=== PATIENT | male | born 1970 | race Caucasian/White ===

== ENCOUNTER 2017-02-25 19:18 | Emergency (ER) | payer OTHER ==
[2017-02-25 19:25] VITALS: BP 138/87
--- NOTE | 2017-02-25 19:42 | EDM.PDOC ---
ED HPI GENERAL MEDICAL PROBLEM - General Chief Complaint: Upper Extremity Injury/Pain Stated Complaint: HAND INJURY, [id number] Time Seen by Provider: 02/25/17 19:41 Source of Information: Reports: Patient History Limitations: Reports: No Limitations - History of Present Illness INITIAL COMMENTS - FREE TEXT/NARRATIVE: laceration to base of left thumb, states hapened around 3 pm today. Was using 2x4 to pry and board broke with jagged edge of board stabbing him in hand Onset: Today Location: Reports: Upper Extremity, Left - Related Data Allergies Allergy/AdvReac Type Severity Reaction Status Date / Time No Known Allergies Allergy Verified 02/25/17 19:24 Home Meds: Home Meds Warfarin [Coumadin] 5 mg PO DAILY 02/25/17 [History] amLODIPine [Norvasc] 5 mg PO DAILY 02/25/17 [History] Past Medical History Cardiovascular History: Reports: Blood Clots/VTE/DVT, Hypertension Social & Family History - Tobacco Use Smoking Status *Q: Never Smoker Second Hand Smoke Exposure: No - Recreational Drug Use Recreational Drug Use: No Review of Systems - Review of Systems Review Of Systems: ROS reveals no pertinent complaints other than HPI. ED EXAM, GENERAL - Physical Exam Exam: See Below Exam Limited By: No Limitations General Appearance: Alert, No Apparent Distress Respiratory/Chest: No Respiratory Distress Cardiovascular: Normal Peripheral Pulses, Regular Rate, Rhythm Extremities: Other (laceration LUE) Neurological: Alert, Oriented, Normal Cognition Psychiatric: Normal Affect, Normal Mood Skin Exam: Warm, Dry, Wound/Incision (crescent laceration to thenar pad left hand) ED TRAUMA EXTREMITY PROCEDURES - Laceration/Wound Repair Left Hand Lac/wound length in cm: 3 (crescent) Appearance: Clean Distal NVT: Neuro & Vascular Intact, No Tendon Injury Anesthetic Type: Local Local Anesthesia - Lidocaine (Xylocaine): 1% Plain Local Anesthetic Volume: 3cc Skin Prep: Chlorhexidine (Hibiciens), Isopropyl Alcohol (Alcohol) Exploration/Debridement/Repair: Wound Explored, in a Bloodless Field, Explored to Base, Minimal Debridement Closed with: Sutures Suture Size: 4-0 # of Sutures: 5 Suture Type: Nylon, Interrupted Suture Size: 4-0 # of Sutures: 5 Sterile Dressing Applied: Nurse Tetanus Status Addressed: Yes (Current at this year, will recheck date in am with clinic.) Complications: No Course - Vital Signs Last Recorded V/S: Last Vital Signs Temp 99 F 02/25/17 19:22 Pulse 71 02/25/17 19:22 Resp 18 02/25/17 19:22 BP 138/87 02/25/17 19:22 Pulse Ox 99 02/25/17 19:22 - Orders/Labs/Meds Meds: Medications Discontinued Medications Generic Name Dose Route Start Last Admin Trade Name [place] PRN Reason Stop Dose Admin Bacitracin 1 dose 02/25/17 19:44 02/25/17 19:56 Bacitracin Oint 1 Gm TOP 02/25/17 19:45 1 dose ONETIME ONE Administration Lidocaine HCl 30 ml 02/25/17 19:48 02/25/17 19:56 Xylocaine-Mpf 1% INJECT 02/25/17 19:49 30 ml ONETIME ONE Administration Departure - Departure Time of Disposition: 20:16 Disposition: Home, Self-Care 01 Condition: good Clinical Impression: Laceration - Discharge Information Instructions: Laceration Care, Adult Referrals: PCP,Not In Area [Primary Care Provider] - Forms: ED Department Discharge Additional Instructions: tylenol or ibuprofen for dicomfort rest extremity 24 hours dressing change and wash with soap and water at least twice daily sutures out 10 days follow up if redness drainage or swelling
[2017-02-25] MEDS ORDERED: Bacitracin Oint 1 GM U/D Packet TOP ONE (19:44)
[2017-02-25] MEDS ORDERED: Lidocaine 1% 30 ML SDV INJECT ONE (19:48)
== END 2017-02-25 20:21 | disposition home or self-care (01) ==
LOC: DL.ED 19:18
DX: S61.012A Laceration without foreign body of left thumb without damage to nail, initial encounter (principal); I10 Essential (primary) hypertension; Z86.718 Personal history of other venous thrombosis and embolism; Z79.01 Long term (current) use of anticoagulants; Z79.899 Other long term (current) drug therapy; W45.8XXA Other foreign body or object entering through skin, initial encounter
CPT/HCPCS: 12002; 99282

== ENCOUNTER 2018-12-24 12:26 | Emergency (ER) | payer OTHER ==
--- NOTE | 2018-12-24 13:06 | EDM.PDOC ---
ED HPI GENERAL MEDICAL PROBLEM - General Chief Complaint: Upper Extremity Injury/Pain Stated Complaint: CAUGHT FINGERS IN BETWEEN MANHOLE COVER [id number] Time Seen by Provider: 12/24/18 13:03 Source of Information: Reports: Patient, RN, RN Notes Reviewed History Limitations: Reports: No Limitations - History of Present Illness INITIAL COMMENTS - FREE TEXT/NARRATIVE: Patient presents to ER with complaint of pain to right hand/fingers. Around 10: 30-10:45 he dropped a manhole cover on his right hand. The cover was about 100 - 125 pounds. He dropped about 5-6 inches on the hand. It is the index, middle and right finger. The nail beds are blue/black. Onset: Today, Sudden Duration: Constant Location: Reports: Upper Extremity, Right Quality: Reports: Ache Severity: Moderate Improves with: Reports: None Worsens with: Reports: None Associated Symptoms: Reports: No Other Symptoms - Related Data Allergies Allergy/AdvReac Type Severity Reaction Status Date / Time No Known Allergies Allergy Verified 12/24/18 13:54 Home Meds: Home Meds Warfarin [Coumadin] 5 mg PO DAILY 02/25/17 [History] amLODIPine [Norvasc] 5 mg PO DAILY 02/25/17 [History] Past Medical History Cardiovascular History: Reports: Blood Clots/VTE/DVT, Hypertension Review of Systems - Review of Systems Review Of Systems: ROS reveals no pertinent complaints other than HPI. ED EXAM, GENERAL - Physical Exam Exam: See Below Exam Limited By: No Limitations General Appearance: Alert, WD/WN, No Apparent Distress Eye Exam: Bilateral Eye: EOMI, Normal Inspection, PERRL Ears: Normal External Exam, Normal Canal, Hearing Grossly Normal, Normal TMs Nose: Normal Inspection, Normal Mucosa, No Blood Throat/Mouth: Normal Inspection, Normal Lips, Normal Teeth, Normal Gums, Normal Oropharynx, Normal Voice, No Airway Compromise Head: Atraumatic, Normocephalic Neck: Normal Inspection, Supple, Non-Tender, Full Range of Motion Respiratory/Chest: No Respiratory Distress, Lungs Clear, Normal Breath Sounds, No Accessory Muscle Use, Chest Non-Tender Cardiovascular: Normal Peripheral Pulses, Regular Rate, Rhythm, No Edema, No Gallop, No JVD, No Murmur, No Rub GI/Abdominal: Normal Bowel Sounds, Soft, Non-Tender, No Organomegaly, No Distention, No Abnormal Bruit, No Mass (Male) Exam: Deferred Rectal (Males) Exam: Deferred Back Exam: Normal Inspection, Full Range of Motion, NT Extremities: Other (swelling right middle 3 fingers. ) Neurological: Alert, Oriented, CN II-XII Intact, Normal Cognition, Normal Gait, Normal Reflexes, No Motor/Sensory Deficits Psychiatric: Normal Affect, Normal Mood Skin Exam: Other (Blue/black nailbeds of index, middle and right fingers right hand. ) Lymphatic: No Adenopathy Course - Vital Signs Last Recorded V/S: Last Vital Signs Temp 98 F 12/24/18 12:26 Pulse 70 12/24/18 12:26 Resp 16 12/24/18 12:26 BP 132/43 L 12/24/18 12:26 Pulse Ox 98 12/24/18 12:26 - Radiology Interpretation Free Text/Narrative:: Xray right hand: FINDINGS: Orbits: No acute intraorbital abnormality. Globes are unremarkable. Sinuses: Normal. No air-fluid levels. Bones/joints: No acute fracture. Soft tissues: There is a hematoma in the frontal scalp. IMPRESSION: No fractures or dislocations. See rad report. Departure - Departure Time of Disposition: 14:17 Disposition: Home, Self-Care 01 Condition: Fair Clinical Impression: Injury of right hand Qualifiers: Encounter type: initial encounter Qualified Code(s): S69.91XA - Unspecified injury of right wrist, hand and finger(s), initial encounter - Discharge Information *PRESCRIPTION DRUG MONITORING PROGRAM REVIEWED*: No *COPY OF PRESCRIPTION DRUG MONITORING REPORT IN PATIENT RERE: No Instructions: Crush Injury of the Hand, [id number] Forms: ED Department Discharge Additional Instructions: Elevate right hand Ice area as tolerated May use Tylenol and/or ibuprofen as directed for pain Follow up with your primary care facility
[2018-12-24 13:54] VITALS: BP 132/43
== END 2018-12-24 14:54 | disposition home or self-care (01) ==
LOC: DL.ED 12:26
DX: S00.03XA Contusion of scalp, initial encounter (principal); S69.91XA Unspecified injury of right wrist, hand and finger(s), initial encounter; W20.8XXA Other cause of strike by thrown, projected or falling object, initial encounter
CPT/HCPCS: 73130-RT; 99282; 99283-25

== ENCOUNTER 2021-02-06 18:01 | Emergency (ER) | payer OTHER ==
[2021-02-06 18:33] VITALS: BP 126/93; PULSE 77
[2021-02-06 19:02] LABS: CHLORIDE,CL 104 mmol/L (98-107); SODIUM,NA 140 mmol/L (136-145)
--- NOTE | 2021-02-06 19:53 | EDM.PDOC ---
ED HPI GENERAL MEDICAL PROBLEM - General Chief Complaint: Lower Extremity Injury/Pain Stated Complaint: POSSIBLE BLOOD CLOT Time Seen by Provider: 02/06/21 19:10 Source of Information: Reports: Patient History Limitations: Reports: No Limitations - History of Present Illness INITIAL COMMENTS - FREE TEXT/NARRATIVE: ED with c/o right lower leg discomfort, some swelling yesterday, no redness. Hx blood clots 12 years ago . Has been on Coumadin since. Also notes right big toe has been tender recently and has been changing normal way he walks. No Injury, No SOB, No chest pain. No change in sensation. - Related Data Allergies Allergy/AdvReac Type Severity Reaction Status Date / Time No Known Allergies Allergy Verified 12/24/18 13:54 Home Meds: Home Meds Warfarin [Coumadin] 5 mg PO DAILY 02/25/17 [History] amLODIPine [Norvasc] 5 mg PO DAILY 02/25/17 [History] Past Medical History Cardiovascular History: Reports: Blood Clots/VTE/DVT, Hypertension Social & Family History - Family History Family Medical History: No Pertinent Family History - Tobacco Use Tobacco Use Status *Q: Never Tobacco User - Caffeine Use Caffeine Use: Reports: None - Recreational Drug Use Recreational Drug Use: No Review of Systems - Review of Systems Review Of Systems: Comprehensive ROS is negative, except as noted in HPI. ED EXAM, GENERAL - Physical Exam Exam: See Below Exam Limited By: No Limitations General Appearance: Alert, No Apparent Distress Ears: Normal External Exam, Hearing Grossly Normal Nose: Normal Inspection Throat/Mouth: Normal Inspection Head: Atraumatic, Normocephalic Neck: Normal Inspection Respiratory/Chest: No Respiratory Distress, Lungs Clear, Normal Breath Sounds Cardiovascular: Regular Rate, Rhythm, No Edema Extremities: Normal Inspection, Normal Range of Motion, Non-Tender. No: Leg Pain, Increased Warmth, Mottled, Pallor, Redness Neurological: Alert, Oriented, Normal Cognition, Normal Gait Psychiatric: Normal Affect Skin Exam: Warm, Dry, Intact Course - Vital Signs Last Recorded V/S: Last Vital Signs Temp 98.2 F 02/06/21 18:28 Pulse 77 02/06/21 18:28 Resp 18 02/06/21 18:28 BP 126/93 H 02/06/21 18:28 Pulse Ox 99 02/06/21 18:28 - Orders/Labs/Meds Labs: Laboratory Tests 02/06/21 02/06/21 02/06/21 Range/Units 18:35 18:35 18:35 WBC 5.5 (5.0-10.0) 10^3/uL RBC 4.71 (4.6-6.2) 10^6/uL Hgb 14.2 (14.0-18.0) g/dL Hct 41.5 (40.0-54.0) % MCV 88.1 (80-100) fL MCH 30.1 (27.0-34.0) pg MCHC 34.2 (33.0-35.0) g/dL Plt Count 227 (150-450) 10^3/uL Neut % (Auto) 48.0 (42.2-75.2) % Lymph % (Auto) 32.0 (20.5-50.1) % [place] % (Auto) 12.4 H (2-8) % Eos % (Auto) 6.9 H (1.0-3.0) % Baso % (Auto) 0.7 (0.0-1.0) % PT 20.8 H (9.0-12.0) SEC INR 2.1 H (0.9-1.2) D-Dimer, Quantitative < 100 (0-400) ng/mL Sodium 140 (136-145) mmol/L Potassium 4.0 (3.5-5.1) mmol/L Chloride 104 (98-107) mmol/L Carbon Dioxide 25 (21-32) mmol/L Anion Gap 15.0 H (7-13) mEq/L BUN 13 (7-18) mg/dL Creatinine 1.03 (0.70-1.30) mg/dL Est Cr Clr Drug Dosing 86.62 mL/min Estimated GFR (MDRD) > 60 BUN/Creatinine Ratio 12.6 (No establ ref range) Glucose 87 (70-99) mg/dL Calcium 8.6 (8.5-10.1) mg/dL Total Bilirubin 0.5 (0.2-1.0) mg/dL AST 26 (15-37) U/L ALT 47 (16-63) U/L Alkaline Phosphatase 61 (46-116) U/L Total Protein 7.7 (6.4-8.2) g/dL Albumin 4.1 (3.4-5.0) g/dL Globulin 3.6 Albumin/Globulin Ratio 1.1 - Re-Assessments/Exams Free Text/Narrative Re-Assessment/Exam: 02/07/21 02:46 Results of findings discussed with patient. Departure - Departure Time of Disposition: 19:51 Disposition: Home, Self-Care 01 Condition: Good Clinical Impression: Pain in right lower leg - Discharge Information *PRESCRIPTION DRUG MONITORING PROGRAM REVIEWED*: No *COPY OF PRESCRIPTION DRUG MONITORING REPORT IN PATIENT RERE: No Instructions: Muscle Strain, [id number] Forms: ED Department Discharge Additional Instructions: tylenol 500mg every 4 hours as needed recheck clinic this week, urgent follow up if increased swelling redness and warmth Sepsis Event Note (ED) - Evaluation Sepsis Screening Result: No Definite Risk - Focused Exam Vital Signs: Vital Signs Temp Pulse Resp BP Pulse Ox 02/06/21 18:28 98.2 F 77 18 126/93 H 99
== END 2021-02-06 20:02 | disposition home or self-care (01) ==
LOC: DL.ED 18:01
DX: M79.661 Pain in right lower leg (principal); I10 Essential (primary) hypertension; Z79.01 Long term (current) use of anticoagulants
CPT/HCPCS: 36415; 80053; 85025; 85379; 85610; 99282; 99283